=== PATIENT | male | born 1965 | race Caucasian/White ===

== ENCOUNTER → 2024-01-21 06:25 | Day surgery (SDC) | payer OTHER, SELFPAY | LOC: GI 06:25 | PROVIDERS: ATTENDING PHYSICIAN Internal Medicine Gastroenterology | DX: Z12.11 Encounter for screening for malignant neoplasm of colon (principal); D12.0 Benign neoplasm of cecum; D12.2 Benign neoplasm of ascending colon; D12.4 Benign neoplasm of descending colon; K57.30 Diverticulosis of large intestine without perforation or abscess without bleeding; K64.8 Other hemorrhoids; Z86.010 Personal history of colon polyps; Z98.0 Intestinal bypass and anastomosis status | CPT/HCPCS: 45385; 45380; 88305 ==

== ENCOUNTER 2025-08-14 19:26 | Emergency (ER) | payer OTHER, SELFPAY ==
[2025-08-14 19:28] VITALS: BP 159/91
[2025-08-14 21:12] VITALS: BP 122/76
[2025-08-14 21:42] VITALS: BMI 30.8
[2025-08-14 21:45] LABS: Hematocrit 44.9 % (39.0-52.0); Hemoglobin 14.5 g/dL (13.0-18.0); Mean Corp Hgb Conc. 32.3 g/dL (33.0-37.0); Mean Corpuscular Volume 94.7 fL (80.0-94.0); Nucleated Red Blood Cells % 0 % (-); Platelet Count 239 10^3/uL (130-400); Red Cell Dist. Width 12.3 % (11.5-14.5)
[2025-08-14 22:00] VITALS: BP 132/82
[2025-08-14 22:02] LABS: ALT (SGPT) 59 U/L (0-50); AST (SGOT) 44 U/L (17-59); Albumin 4.7 g/dl (3.5-5.0); Alkaline Phosphatase 62 U/L (38-126); Blood Urea Nitrogen 15 mg/dl (9-20); Calcium 9.4 mg/dl (8.4-10.2); Carbon Dioxide 26 mmol/L (22-30); Chloride 104 mmol/L (98-107); Estimated Creatinine Clearance 86 ml/min; Glucose 101 mg/dl (70-99); Potassium 4.2 mmol/L (3.5-5.1); Sodium 140 mmol/L (135-145); Total Protein 7.4 g/dl (6.3-8.2); eGFR > 60.00
--- NOTE | 2025-08-14 22:18 | ED.GENMED ---
History of Present Illness
General
Chief Complaint: Allergic Reaction
Source: patient and spouse
Exam Limitations: none
Time Seen by Provider: 08/14/25 21:18
Nursing documentation reviewed up to this point in time: agreed with
History of Present Illness
History of Present Illness:
Note:
CHIEF COMPLAINT(S)
Swelling of the eyes and breathing difficulty.
HISTORY OF PRESENT ILLNESS
The patient is a 60-year-old male with a history of eye swelling and difficulty breathing. He first noticed the episode upon returning home after playing with his dog and preparing dinner. The patient describes similar episodes in the past,
including one a few weeks ago characterized by facial swelling and sneezing, and another in November which occurred after drinking coffee. During todays episode, the patient experienced swelling of the eyes but no lips or throat swelling. The
patient took diphenhydramine (Benadryl) around 7 PM with some improvement in symptoms. The swelling was described as reduced from initial onset. The patient also notes itchiness and some breathing difficulty today, suggesting nasal congestion but no
throat constriction. The patient recalls a bee sting about a month and a half ago, which did not induce symptoms indicative of anaphylaxis. Past reactions and similar occurrences were discussed to rule out specific triggers.
PAST MEDICAL AND SURGICAL HISTORY
The patient has a history of hypertension.
CHRONIC MEDICAL CONDITIONS SIGNIFICANTLY AFFECTING CARE
Hypertension.
PLAN
1. Prescription for an epinephrine auto-injector (EpiPen) is to be sent to the patients pharmacy for emergencies involving airway complications, throat swelling, or significant respiratory distress.
2. Patient advised to use an antihistamine like loratadine (Claritin) in the morning and diphenhydramine at night to manage allergy symptoms.
3. Monitoring for more severe reactions, including the potential need for an EpiPen, was discussed, emphasizing its use in airway emergencies or systemic reactions.
4. Follow-up care instructions provided, ensuring the patient understands when to use the EpiPen.
DIFFERENTIAL DIAGNOSIS
The Differential Diagnosis includes, in no particular order and is not limited to:
1. Allergic Conjunctivitis
2. Angioedema
3. Hay fever (Allergic Rhinitis)
4. Billary Obstruction
5. Anaphylaxis
6. Viral Rhinitis
7. Sinusitis
8. Migraine with Aura
9. Myxedema
10. Medication-induced angioedema (BRIAN inhibitor-related)
Physical Exam
General: no apparent distress, not acutely ill
Neck: supple. no meningeal signs. normal posterior pharynx
Heart: s1/s2 regular rate and rhythm, no murmur. equal radial
pulses.
HEENT: Pupils equal round reactive to light, EOMI, right eyelid swelling
Lungs: no acute respiratory distress. clear bilaterally
Abdomen: normal bowel sounds. not tender. no CVAT
Neuro: alert and oriented. no focal neurological deficits cranial nerves II through XII intact
Skin: no rash
Psychiatric: well kept. interactive and cooperative
Extremities: no edema. no calf tenderness. negative homans. good distal pulses
CARE-UPDATE
08/14/25 - 22:24
The patient exhibits noticeable periorbital swelling but reports no other symptoms currently. Condition has improved following administration of Benadryl at home. Laboratory results show no significant abnormalities. Plan to discharge with an EpiPen
prescription for use in case of future allergic reactions. Patient advised to schedule a follow-up appointment with primary care for ongoing management and monitoring of symptoms.
Disposition:
SUMMARY OF ENCOUNTER
A 60-year-old male presented to the emergency department with symptoms of eye swelling and breathing difficulty. The patient reported similar episodes in the past triggered by different allergens. The current episode improved with the administration
of diphenhydramine, suggesting an allergic reaction. Due to the patients history and presenting symptoms, an EpiPen was prescribed for emergencies involving airway complications or significant respiratory distress. The patient was advised to
continue using an antihistamine regimen, with loratadine in the morning and diphenhydramine at night.
ASSESSMENT
The patient is experiencing an allergic reaction, possibly allergic conjunctivitis or angioedema, triggered by environmental allergens or foods.
PLAN
1. Prescribe epinephrine auto-injector for emergency use in case of severe allergic reactions involving airway compromise.
2. Recommend loratadine in the morning and diphenhydramine at night for allergy symptom management.
3. Provide education on the use of the EpiPen and signs of severe allergic reactions.
4. Advise follow-up with primary care to further investigate allergy triggers and adjust ongoing management as per the symptoms.
PATIENT EDUCATION AND COUNSELING
The patient was educated on the importance of recognizing severe allergic symptoms requiring the use of an EpiPen and adhering to the antihistamine regimen. Precautionary measures for avoiding potential allergic triggers were discussed.
FOLLOW-UP INSTRUCTIONS
The patient was advised to follow up with their primary care provider for further evaluation and management of his allergic reactions.
MEDICATION RECONCILIATION
1. Loratadine 10 mg orally in the morning.
2. Diphenhydramine (Benadryl) as needed at night.
3. Prescription for an epinephrine auto-injector provided for emergencies.
MEDICAL DECISION MAKING
-Complexity of Data Reviewed: Chronic conditions affecting care (hypertension). Differential diagnosis includes allergic conjunctivitis, angioedema, hay fever (allergic rhinitis), anaphylaxis, and more.
-Data:
Category 1
-Reviewed recent events and medications taken by the patient, including loratadine and diphenhydramine.
Category 2
-My independent interpretation of the symptoms suggests an allergic reaction consistent with prior episodes.
Category 3
- Discussion of management with the patient, focusing on the use of an EpiPen and ongoing allergic symptom management.
-Risk: Prescription medication was prescribed: an epinephrine auto-injector for emergency use in case of significant allergic reactions. The patient was discharged with guidance on recognizing signs of severe allergy and the necessity of using the
EpiPen if needed. Consideration of Admission/Observation was not necessary as symptoms were controlled with outpatient management and the patient was reliable for follow-up.
DIAGNOSIS
1. Allergic Rhinitis (J30.9)
2. Allergic Conjunctivitis (H10.1)
Phy Exam
Physical Exam
Physical Exam:
.
Course
Orders/Labs/Results
Orders:
Orders
08/14/25 21:37
Complete Blood Count/With Diff Urgent
Comprehensive Metabolic Panel Urgent
Abnormal Lab Results
08/14/25
21:37
MCV 94.7 H fL
(80.0-94.0)
MCHC 32.3 L g/dL
(33.0-37.0)
Glucose 101 H mg/dl
(70-99)
ALT 59 H U/L
(0-50)
08/14/25 21:37
08/14/25 21:37
Vital Signs
Initial and Last Documented VS:
Initial Vital Signs
Temp Pulse Resp BP Pulse Ox
98.3 F 72 16 159/91 97
08/14/25 19:28 08/14/25 19:28 08/14/25 19:28 08/14/25 19:28 08/14/25 19:28
Last Documented Vital Signs
Temp Pulse Resp BP Pulse Ox
98.3 F 66 14 132/82 97
08/14/25 19:28 08/14/25 22:15 08/14/25 22:15 08/14/25 22:00 08/14/25 22:21
*Pulse Oximetry
SaO2: 97
Oxygen Mode of Delivery: Room air
Patient hypoxic: no
*Critical Care Note
Total Time (30-74mins, 75-104mins- exclusive of procedures): Not Applicable
ED Attending Note
-
Portions of this chart may have been created with voice recognition software.� Occasional wrong word or��sound alike� substitutions may have occurred due to the inherent limitations of voice recognition software.
Discharge Plan
Departure
Patient Disposition: Home (Routine Discharge)
Date of Disposition: 08/14/25
Time of Disposition: 22:21
Patient with high blood pressure during this ER visit?: Yes
Condition: Good
Discharge Problem:
Allergic reaction
Instructions: Allergic reaction - ED (DC), BLOOD PRESSURE
Prescriptions:
New
epinephrine [EpiPen 2-Stu] 0.3 mg/0.3 mL auto-injector
0.3 mg IM ONCE PRN (Reason: anaphylaxis) Qty: 2 0RF
Interventions
Interventions:
*Risk Screen - Suicide Last Done: 08/14/25 21:30
*Neglect/Abuse Screening Last Done: 08/14/25 21:30
*ED- Fall Risk Assessment Last Done: 08/14/25 21:30
*ED COVID-19 Vaccine History Last Done: 08/14/25 21:30
*ED Influenza Vaccine History Last Done: 08/14/25 21:30
ED- Cardiac Assessment Last Done: 08/14/25 21:47
ED- Pulmonary Assessment Last Done: 08/14/25 21:47
ED-Skin Assessment Last Done: 08/14/25 21:47
Discharge Date and Time
Print Language: ROMANIAN
== END 2025-08-14 23:07 | disposition home or self-care (01) ==
LOC: EMR 19:26
PROVIDERS: EMERGENCY PHYSICIAN Emergency Medicine; FAMILY PHYSICIAN Physician Assistant Medical
DX: T78.40XA Allergy, unspecified, initial encounter (principal); X58.XXXA Exposure to other specified factors, initial encounter; I10 Essential (primary) hypertension
CPT/HCPCS: 99283; 80053; 85025